=== PATIENT | female | born 1970 | race African-American/Black ===

== ENCOUNTER 2016-07-18 17:24 | Emergency (ER) | payer SELFPAY ==
--- NOTE | 2016-07-19 10:01 | ER ---
ADMIT: 07/18/2016 RM/LOC: ER [facility] MR#: [id number] [facility] [address] [place] [id number] SARATH ROSA [facility] [place] [address] Emergency Room Report SEX: F AGE: 45 : 1970 DATE: 07/18/2016 HISTORY OF PRESENT ILLNESS: This is a 45-year-old [place] female, who presents to the emergency room with wheezing. She thinks she may be as well. Dr. Zavala dictated on it. I am following up on the disposition for this patient. Her breathing was improved with the inhalation therapy that she received. The serum came positive for . The patient will be referred to Dr. Mclean, [facility] [employer]. She will be given chlorpheniramine 4 mg 1 p.o. q.4-6 hours for congestion. As she is , we are unable to give her much more nor she can get prednisone for her lungs. She needs to hydrate. Follow up with Dr. Mclean and take medication for congestion. DIAGNOSES: At this point is : 1. Reactive airway. 2. . I suspect this is viral in etiology. TIFFANY Okeefe / Agusto Zavala MD / modl JOB #: [id number] CC: Agusto Zavala MD, Attending Physician Didier Mclean MD, Family Physician
[2016-12-30] MEDS ORDERED: [UNRECOGNIZED DRUG - OTHER] PO (15:42)
[2016-12-30] MEDS ORDERED: TYLENOL DPS325 MG PO (15:42)
[2016-12-30] MEDS ORDERED: COLACE-DPS100 MG PO (15:42)
[2016-12-30] MEDS ORDERED: PERCOCET 5-3251 EACH PO (15:42)
[2016-12-30] MEDS ORDERED: MYLICON DPS80 MG PO (15:42)
[2016-12-30] MEDS ORDERED: PROVENTIL HFA6.7 GM IH (15:43)
[2016-12-30] MEDS ORDERED: NIPPLECREAM TP (15:43)
[2016-12-30] MEDS ORDERED: PROCARDIA XL60 MG PO (15:43)
[2016-12-30] MEDS ORDERED: MOTRIN-DPS800 MG PO (15:43)
[2016-12-30] MEDS ORDERED: FLUTICASONE IH (15:44)
== END 2016-07-18 20:15 | disposition home or self-care (01) ==
LOC: ER 17:24
DX: O99.511 Diseases of the respiratory system complicating pregnancy, first trimester (principal); J45.909 Unspecified asthma, uncomplicated; Z3A.00 Weeks of gestation of pregnancy not specified